=== PATIENT | female | born 1970 | race Caucasian/White ===

== ENCOUNTER 2023-09-18 02:24 | Emergency (ER) | payer SELFPAY ==
[2023-09-18 02:29] VITALS: BP 173/76; PULSE 77; RESP 16; TEMP 36.4; O2SAT 99
--- NOTE | 2023-09-18 02:33 | ED.GENADULT ---
HPI - General Adult General Chief complaint: Dental/Oral Stated complaint: R sided face swelling Time Seen by Provider: 09/18/23 02:29 History of Present Illness HPI narrative: Ryann is a 52F with a PMH of poor dentition that presented to the ED with pain in her upper left teeth and facial swelling that started this morning and is getting worse. She has had this before. She is unable to get into a Dentist d/t financial concerns. No dysphagia, fevers, chills, chest pain or dyspnea. Related Data Home Medications Medication Instructions Recorded Confirmed No Home Medications 09/18/23 09/18/23 Allergies Allergy/AdvReac Type Severity Reaction Status Date / Time No Known Allergies Allergy Mild Verified 09/18/23 02:28 Review of Systems Review of Systems: All systems reviewed & are unremarkable except as noted in HPI and below PMFSH Past Medical History Medical History (Updated 09/18/23 @ 02:37 by Rene Duran DO) Depression Family History Family History Father Family history of type 2 diabetes mellitus Social History Social History Smoking status: Current every day smoker Exam Const: General: cooperative, healthy appearing, comfortable, no acute distress, well developed, alert, awake and Physically active Orientation/consciousness: oriented to person, oriented to place and oriented to time HENMT: Head: normal to inspection, normocephalic and atraumatic Ears: hearing grossly normal bilaterally and external ears normal Face/Nose/Sinus: Normal external nose present Other: Poor dentition, especially on the upper left where multiple tooth are missing and the gingiva is very erythematous and TTP Left sided facial swelling Eyes: General: appearance normal, both eyes and all related structures Periorbital: periorbital findings normal Sclera: sclerae normal Pupils: Equal, round and reactive pupils present Neck: Neck: normal visual inspection Chest: Chest palpation & inspection: normal inspection of the chest Resp: Effort & Inspection: normal respiratory effort, able to speak in complete sentences and no respiratory distress GI: Inspection: normal to inspection GI Palp: Yes Soft to palpation Auscultation: normal bowel sounds Skin: General skin exam: normal color and no rashes or lesions noted Neuro: General: oriented to person, oriented to place and oriented to time Cranial nerves: Yes Equal, round and reactive pupils present Extrem: General: normal to inspection Course Vital Signs Vital signs: Vital Signs Temperature 97.6 F 09/18/23 02:29 Pulse Rate 77 09/18/23 02:29 Respiratory Rate 16 09/18/23 02:29 Blood Pressure 173/76 H 09/18/23 02:29 Pulse Oximetry 99 09/18/23 02:29 Temperature 97.6 F 09/18/23 02:29 Pulse Rate 77 09/18/23 02:29 Respiratory Rate 16 09/18/23 02:29 Blood Pressure 173/76 H 09/18/23 02:29 Pulse Oximetry 99 09/18/23 02:29 Medical Decision Making Vital Signs Vital Signs: Vital Signs Temperature 97.6 F 09/18/23 02:29 Pulse Rate 77 09/18/23 02:29 Respiratory Rate 16 09/18/23 02:29 Blood Pressure 173/76 H 09/18/23 02:29 Pulse Oximetry 99 09/18/23 02:29 Temperature 97.6 F 09/18/23 02:29 Pulse Rate 77 09/18/23 02:29 Respiratory Rate 16 09/18/23 02:29 Blood Pressure 173/76 H 09/18/23 02:29 Pulse Oximetry 99 09/18/23 02:29 Discharge Plan Discharge Clinical Impression: Dental infection, Cellulitis of face Patient Disposition: Home, Self-Care Condition: Stable Instructions: Mouth Care (ED) Prescriptions: New clindamycin HCl 300 mg capsule 300 mg PO Q6H Qty: 20 0RF meloxicam 15 mg tablet 15 mg PO DAILY Qty: 10 0RF No Action No Home Medications Follow-up/Referrals: UNKNOWN,DOCTOR [Primary Care Provider] - Stand Alone
[2023-09-18] MEDS: CLINDAMYCIN HCL 150 MG CAP 450 MG PO (02:42)
[2023-09-18] MEDS: KETOROLAC 30 MG/ML VIAL (*BKC) IM (02:43)
[2023-09-18 02:52] VITALS: BP 160/90; PULSE 77; RESP 18; O2SAT 99
== END 2023-09-18 03:00 | disposition home or self-care (01) ==
PROVIDERS: Emergency Provider Family Medicine
DX: K04.7 Periapical abscess without sinus (principal); L03.211 Cellulitis of face; F17.200 Nicotine dependence, unspecified, uncomplicated
CPT/HCPCS: 96372; 99283; A9270; J1885

== ENCOUNTER 2024-08-03 20:13 | Emergency (ER) | payer SELFPAY ==
--- NOTE | ~2024-08-03 | XR_ITS ---
CHEST RADIOGRAPH CLINICAL HISTORY: cough . COMPARISON: None available TECHNIQUE: Single portable view of the chest. FINDINGS The cardiomediastinal silhouette is unremarkable. The lungs are clear. Visualized osseous structures and soft tissues are unremarkable. IMPRESSION: No focal infiltrate or effusion. Reviewed, dictated and finalized at location A. OVEMENT COORDINATOR
[2024-08-03 20:15] VITALS: BP 160/95; PULSE 79; PULSE 80; RESP 11; O2SAT 96
--- NOTE | 2024-08-03 20:16 | ED_ITS ---
HPI - General Adult General Chief complaint: Anxiety Stated complaint: shortness of breath Time Seen by Provider: 08/03/24 20:16 Source: patient Mode of arrival: ambulatory Limitations: no limitations History of Present Illness HPI narrative: 53 years old white female came to the ED from home by private car complaining of sudden onset of coughing while sitting watching TV, increased heart rate, feeling like going to pass out, restless and panicking lasted for 3 hours. Patient denies any chest pain, fever, chills, nausea, vomiting or back pain. History of anxiety and depression not on any medication at this time. Patient reports lot of sense stress going on in life lately. Patient is telling me that she been coughing for the last 5 weeks. Patient does smoke cigarettes. Related Data Allergies Allergy/AdvReac Type Severity Reaction Status Date / Time No Known Allergies Allergy Mild Verified 09/18/23 02:28 Review of Systems Review of Systems: All systems reviewed & are unremarkable except as noted in HPI and below PMFSH Past Medical History Medical History (Updated 08/03/24 @ 20:55 by Lo Morrow MD) Depression Family History Family History Father Family history of type 2 diabetes mellitus Social History Social History Smoking status: Current every day smoker Exam Narrative: General appearance: Well-developed, well-nourished , anxious and looks stressed Skin: Normal color Head: Normocephalic, nontraumatic Eyes: Clear conjunctiva ENT: Oropharynx normal, ears normal, nose normal Neck: Supple, nontender Chest and respiratory: Airway patent, no respiratory distress, no accessory muscle use Heart: Regular rate/rhythm Abdomen: Soft, nontender, no organomegaly, quiet bowel sounds Musculoskeletal: Normal range of motion, nontender back Neurologic: Alert and oriented ?3, Medical Decision Making MDM Narrative Medical decision making narrative: patient came to the ED with panic attack-like symptoms Vital signs on arrival showed blood pressure 160/95, heart rate of 80, respiration 22. Physical examination showing anxious lady, otherwise within normal limit Differential diagnosis anxiety like symptoms, bronchitis, pneumonia EKG arrival sinus beats per minute, normal EKG Chest x-ray on arrival showed no acute abnormalities. Patient been coughing for the last 5 weeks, secondary bacterial infection is suspected. Acute bronchitis, anxiety like symptoms, tobacco dependent The pt was discharged to home.the pt,s condition upon discharge was fair,education was provided to the pt in reference to the final impression,discharge study results,treatment,prognosis and need for follow up . Imaging Data Radiologist's impression: Chest x-ray showed no acute abnormalities Critical Care Time Critical Care Time Critical Care Time: No Discharge Plan Discharge Clinical Impression: Anxiety-like symptoms, Acute bronchitis, Needs smoking cessation education Patient Disposition: Home, Self-Care Condition: Improved Instructions: Antibiotic Form, How to Stop Smoking (ED), Acute Bronchitis (ED), Panic Disorder (ED) Additional Instructions: Return if symptoms are worsening , call your family physician for appointment, take Tylenol as as needed for aches and pain, continue home medications. Patient Language: [place] Prescriptions: New azithromycin [Zithromax Z-Tenzin] 250 mg tablet 250 mg PO DAILY PRN (Reason: pneumonia) 5 Days Qty: 6 0RF prednisone 20 mg tablet 40 mg PO DAILY 5 Days Qty: 10 0RF albuterol sulfate [Ventolin HFA] 90 mcg/actuation HFA aerosol inhaler 2 puff inhalation QID PRN (Reason: shortness of breath or wheezing) Qty: 8.5 0RF No Action clindamycin HCl 300 mg capsule 300 mg PO Q6H Qty: 20 0RF meloxicam 15 mg tablet 15 mg PO DAILY Qty: 10 0RF Follow-up/Referrals: UNKNOWN,DOCTOR [Primary Care Provider] -
[2024-08-03 20:19] VITALS: BP 160/95; PULSE 80; RESP 22; TEMP 36.5; O2SAT 99
--- NOTE | 2024-08-03 20:27 | ECG_ITS ---
Test Date: 2024-08-03 20:29:53 Measurements Intervals [place] Rate: 71 P: 5 MD: 133 QRS: 34 QRSD: 86 T: 30 QT: 415 QTc: 451 Interpretive Statements SINUS RHYTHM No previous ECG available for comparison Electronically Signed On 08-04-2024 17:43:57 [employer] by Scotty Baxter M.D.
[2024-08-03 20:31] VITALS: BP 150/83; PULSE 75; RESP 25; O2SAT 96
[2024-08-03] MEDS: LORazepam (*CRX) 1 MG TABLET PO ×2 (20:31→20:55)
[2024-08-03 21:02] VITALS: BP 158/78; PULSE 75; RESP 20; O2SAT 99
== END 2024-08-03 21:02 | disposition home or self-care (01) ==
PROVIDERS: Emergency Provider Emergency Medicine
DX: J20.9 Acute bronchitis, unspecified (principal); F41.9 Anxiety disorder, unspecified; F17.210 Nicotine dependence, cigarettes, uncomplicated
CPT/HCPCS: 71045; 93005; 99283; A9270